=== PATIENT | male | born 1960 | race Caucasian/White ===

== ENCOUNTER → 2020-05-08 | Outpatient (CLI) | payer BC ==
--- NOTE | 2020-05-09 12:59 | XR ---
Left hip HISTORY: Pain in left hip 2 views of left hip Some mild prominence noted along the femoral neck superiorly. Alignment, bone mineralization and join t space maintained. No fracture or dislocation. IMPRESSION: Correlate for possible femoral acetabular impingement.
== END | disposition home or self-care (01) ==
LOC: RADXRMAIN 17:20
PROVIDERS: ATTEND Nurse Practitioner Family
DX: M25.552 Pain in left hip (principal)
CPT/HCPCS: 73502

== ENCOUNTER → 2020-10-23 | Outpatient (CLI) | payer BC ==
--- NOTE | 2020-10-23 09:52 | MR ---
MR left hip HISTORY: Left hip pain Multiplanar multisequence imaging obtained through the pelvis with small [id number] images through the left hip Exam correlated plain film 05/08/2020 There is a small amount of fluid signal present within the soft tissues adjacent to the gluteus tendo n insertions, gluteus tendons show some increased signal at the level of their insertion on the proxi mal left femur. No sizable left hip effusion. No definite labral tear. Geodes suspected in the acetab ular roof, articular cartilage signal is relatively maintained, some mild chondromalacia is suspected . There is no fracture or dislocation. Bone marrow signal is essentially maintained. No significant f ree fluid within the pelvis. No adenopathy. IMPRESSION: Findings consistent with partial tear or strain gluteus medius tendon, gluteus minimus te ndon. Mild osteoarthritis.
--- NOTE | 2020-10-23 12:02 | MR ---
EXAMINATION TYPE: MR lumbar spine wo con DATE OF EXAM: 10/23/2020 COMPARISON: NONE HISTORY: Low Back pain, Left hip pain TECHNIQUE: Multiplanar, multisequence imaging of the lumbar spine is performed without IV contrast. FINDINGS: Sagittal images of the lumbar spine show vertebral body heights and alignment to appear sat isfactory. Multilevel disc desiccation. There is mild to moderate multilevel disc space narrowing wit h relative sparing of L2-L3 level. The conus medullaris is normal in position and signal ending mid L 1 level. Small hemangioma involving the L3 vertebra sagittal image 7. Scattered Modic type II endplat e changes lower lumbar spine. Axial images at T12-L1 level show broad-based left paracentral disc protrusion mildly effacing the a nterior thecal sac. Axial images at L1-L2 level show larger left disc extrusion extending 10 mm below superior L2 endplat e sagittal image 6 of effacing ventral thecal sac along with lateral recess, disc herniation extends 15 mm transversely, there is compression of the left L1 nerve and likely central left L2 nerve sagitt al image 7. Axial images at L2-L3 level appear within normal limits. Axial images at L3-L4 levels show mild facet arthropathy bilaterally. There is mild broad-based poste rior disc protrusion mildly effacing the anterior thecal sac. There is mild to moderate left sided ne ural foraminal narrowing anterior inferior aspect the right-sided neural foramina is patent. Axial images at L4-L5 level show mild/moderate facet arthropathy bilaterally. There is focal central disc protrusion mildly effaces the anterior thecal sac. There is moderate right and mild left-sided n eural foraminal narrowing. Axial images at L5-S1 level show tiny central disc protrusion and mild facet arthropathy bilaterally. Mild effacement anterior thecal sac. Patent bilateral neural foramina. Paraspinal muscle bulk is maintained. There is 2.8 cm thin-walled cyst right kidney midpole level axi al image 27. IMPRESSION: Multilevel degenerative changes as detailed above. Largest disc herniation noted left L1- L2 level likely accounting for patient's left-sided radiculopathy type symptoms.
== END | disposition home or self-care (01) ==
LOC: EDSTATUS 10-10 07:45 → RADMRIMAIN 07:11 → OR 07:11 → EDSTATUS 07:45
PROVIDERS: ATTEND Family Medicine
DX: M51.26 Other intervertebral disc displacement, lumbar region (principal); M47.816 Spondylosis without myelopathy or radiculopathy, lumbar region; M16.12 Unilateral primary osteoarthritis, left hip
CPT/HCPCS: 72148

== ENCOUNTER → 2020-11-28 | Outpatient (CLI) | payer BC ==
--- NOTE | 2020-11-28 15:56 | XR ---
EXAMINATION TYPE: XR chest 2V DATE OF EXAM: 11/28/2020 COMPARISON: NONE HISTORY: Preoperative TECHNIQUE: Frontal and lateral views of the chest are obtained. FINDINGS: There is no focal air space opacity, pleural effusion, or pneumothorax seen. The cardiac silhouette size is within normal limits. The osseous structures are intact. IMPRESSION: No acute cardiopulmonary process.
[2020-11-28 15:57] LABS: Basophils % (A) 0 %; Eosinophils # (A) 0.1 k/uL (0-0.7); Eosinophils % (A) 1 %; HCT 48.7 % (39.0-53.0); HGB 16.9 gm/dL (13.0-17.5); Lymphocytes # (A) 1.2 k/uL (1.0-4.8); Lymphocytes % (A) 17 %; MCH 32.1 pg (25.0-35.0); MCHC 34.6 g/dL (31.0-37.0); MCV 92.7 fL (80.0-100.0); Mean Platelet Volume 7.5; Monocytes # (A) 0.5 k/uL (0-1.0); Monocytes % (A) 6 %; Neutrophils # (A) 5.5 k/uL (1.3-7.7); Neutrophils % (A) 73 %; Platelet Count 214 k/uL (150-450); RBC 5.25 m/uL (4.30-5.90); RDW 12.6 % (11.5-15.5); WBC 7.5 k/uL (3.8-10.6)
[2020-11-28 16:05] LABS: INR 0.9 (<1.2); Prothrombin Time 10.1 sec (9.0-12.0)
[2020-11-28 16:20] LABS: ALT 23 U/L (4-49); AST 26 U/L (17-59); African American GFR (CKD) >90 (>60 ml/min/1.73 sqM); Albumin 4.3 g/dL (3.5-5.0); Albumin/Globulin Ratio 1.7; Alkaline Phosphatase 83 U/L (38-126); Anion Gap 8 mmol/L; Blood Urea Nitrogen 22 mg/dL (9-20); Calcium 9.5 mg/dL (8.4-10.2); Carbon Dioxide 28 mmol/L (22-30); Chloride 103 mmol/L (98-107); Globulin 2.5 g/dL; Glucose 94 mg/dL (74-99); Non-African American GFR(CKD) >90 (>60 ml/min/1.73 sqM); Potassium 4.2 mmol/L (3.5-5.1); Sodium 139 mmol/L (137-145); Total Bilirubin 0.3 mg/dL (0.2-1.3); Total Protein 6.8 g/dL (6.3-8.2)
== END | disposition home or self-care (01) ==
LOC: LABWHC1 15:23
PROVIDERS: ATTEND Nurse Practitioner
DX: Z01.812 Encounter for preprocedural laboratory examination (principal); N40.1 Benign prostatic hyperplasia with lower urinary tract symptoms
CPT/HCPCS: 36415; 71046; 80053; 85025; 85610

== ENCOUNTER 2021-05-28 07:44 | Day surgery (SDC) | payer BC ==
[2021-05-24 12:03] VITALS: BMI 25.1
[~2021-05-28 07:44] MED LIST: LACTATED RINGERS 1,000 ML IV SCH
--- NOTE | 2021-05-28 07:50 | P.GSHP ---
History of Present Illness H&P Date: 05/28/21 CHIEF COMPLAINT: Colon screen HISTORY OF PRESENT ILLNESS: The patient is a 61-year-old male who presents for colon screen. Lower endoscopy was offered for further evaluation and management. PAST MEDICAL HISTORY: Please see list. PAST SURGICAL HISTORY: Please see list. MEDICATIONS: Please see list. ALLERGIES: Please see list. SOCIAL HISTORY: No illicit drug use FAMILY HISTORY: No reports of Crohn disease or ulcerative colitis. REVIEW OF ORGAN SYSTEMS: CONSTITUTIONAL: No reports of fevers or chills. PHYSICAL EXAM: VITAL SIGNS: Stable GENERAL: Well-developed pleasant in no acute distress. HEENT: No scleral icterus. Extraocular movements grossly intact. Moist buccal mucosa. NECK: Supple without lymphadenopathy. CHEST: Unlabored respirations. Equal bilateral excursions. CARDIOVASCULAR: Regular rate and rhythm. Distal 2+ pulses. ABDOMEN: Soft, nontender, nondistended. MUSCULOSKELETAL: No clubbing, cyanosis, or edema. ASSESSMENT: 1. Colon screen. PLAN: 1. Recommend proceeding with a lower endoscopy Past Medical History Past Medical History: Cancer, GERD/Reflux, Prostate Disorder Additional Past Medical History / Comment(s): Hx kidney stones. 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 Sl BPH. History of Any Multi-Drug Resistant Organisms: None Reported Past Surgical History: Tonsillectomy Additional Past Surgical History / Comment(s): Colonoscopy. Cystoscopy. Past Anesthesia/Blood Transfusion Reactions: Motion Sickness Smoking Status: Never smoker - Past Family History Mother Family Medical History: No Reported History Medications and Allergies Home Medications Medication Instructions Recorded Confirmed Type Acetaminophen [Tylenol Extra 500 - 1,000 mg PO DIRECTED PRN 05/24/21 05/24/21 History Strength] Alfuzosin HCl [Uroxatral] 10 mg PO DAILY 05/24/21 05/24/21 History Calcium Carbonate [Tums] 500 - 1,000 mg PO QID PRN 05/24/21 05/24/21 History Fexofenadine/Pseudoephedrine 1 each PO BID PRN 05/24/21 05/24/21 History [Shannan-D 12 Hour Tablet] Glucosamine (Unknown Dose) 1 tab PO DAILY 05/24/21 History Multivitamins, Thera [Multivitamin 1 tab PO DAILY 05/24/21 05/24/21 History (formulary)] Vitamin D3 (Unknown Dose) 1 tab PO DAILY 05/24/21 History Allergies Allergy/AdvReac Type Severity Reaction Status Date / Time No Known Allergies Allergy Verified 05/24/21 11:43
[2021-05-28 08:18] VITALS: RESP 16; TEMP 97.8
[2021-05-28] MEDS ORDERED: LIDOCAINE 1% (10MG/ML) FOR IV START INTRADERMA ONE (08:23)
[2021-05-28] MEDS ORDERED: PROPOFOL 10 MG/ML 20 ML VIAL IV ONE (09:16)
--- NOTE | 2021-05-28 09:41 | P.PCN ---
Date of Procedure: 05/28/21 Description of Procedure: PREOPERATIVE DIAGNOSIS: Colonoscopy screening POSTOPERATIVE DIAGNOSIS: Tubular adenoma transverse colon Sigmoid diverticulosis Internal hemorrhoids, grade 2 OPERATION: Colonoscopy to the ileocecal valve and appendiceal orifice, cecum Colonoscopy with hot snare polypectomy SURGEON: Aga Mcconnell MD. ANESTHESIA: MAC. INDICATIONS: The patient is an 61-year-old male who presents family history of malignant colon polyps and personal history of colon polyps. Last colonoscopy 5 years. Benefits and risks were described and informed consent was obtained. DESCRIPTION OF PROCEDURE: The patient had undergone Sutab prep. The patient had been brought into the operating room and laid in the left lateral decubitus position. After adequate intravenous sedation, the rectum was examined with 2% lidocaine jelly. The prostate was unremarkable. External hemorrhoids were encountered. The rectal tone was within normal limits. No lesions were palpated in the rectal vault. An Olympus colonoscope was advanced until the cecum, ileocecal valve and appendiceal orifice were clearly viewed. The prep was good Sigmoid diverticulosis was encountered. Colonic polyps were found and removed. No focal colitis was found. Retroflexion of the scope demonstrated grade 2 internal hemorrhoids without active bleeding or inflammation. The colon was desufflated. The patient had tolerated the procedure well. Withdrawal time was over 6 minutes. FINDINGS: Aronchick preparation quality scale 2 (1-5) Internal hemorrhoids, grade 2 External hemorrhoids, grade 2. No arteriovenous malformations. Sigmoid diverticulosis Removal of 1 polyp: - Snare polypectomy transverse colon, 5 mm tubulovillous adenoma polyp. No focal colitis. RECOMMENDATIONS: Repeat colonoscopy 5 years, 2025 Plan - Discharge Summary Discharge Rx Participant: No New Discharge Prescriptions: Continue Fexofenadine/Pseudoephedrine [Shannan-D 12 Hour Tablet] 1 each PO BID PRN PRN Reason: allergies/sinus sx Vitamin D3 (Unknown Dose) 1 tab PO DAILY Acetaminophen [Tylenol Extra Strength] 500 - 1,000 mg PO DIRECTED PRN PRN Reason: Pain Multivitamins, Thera [Multivitamin (formulary)] 1 tab PO DAILY Alfuzosin HCl [Uroxatral] 10 mg PO DAILY Glucosamine (Unknown Dose) 1 tab PO DAILY Calcium Carbonate [Tums] 500 - 1,000 mg PO QID PRN PRN Reason: GERD Discharge Medication List Acetaminophen [Tylenol Extra Strength] 500 - 1,000 mg PO DIRECTED PRN 05/24/21 [History] Alfuzosin HCl [Uroxatral] 10 mg PO DAILY 05/24/21 [History] Calcium Carbonate [Tums] 500 - 1,000 mg PO QID PRN 05/24/21 [History] Fexofenadine/Pseudoephedrine [Shannan-D 12 Hour Tablet] 1 each PO BID PRN 05/24/21 [History] Glucosamine (Unknown Dose) 1 tab PO DAILY 05/24/21 [History] Multivitamins, Thera [Multivitamin (formulary)] 1 tab PO DAILY 05/24/21 [History] Vitamin D3 (Unknown Dose) 1 tab PO DAILY 05/24/21 [History] Follow up Appointment(s)/Referral(s): Aga Mcconnell MD [STAFF PHYSICIAN] - As Needed Patient Instructions/Handouts: Diverticulosis Diet (GEN), Diverticulosis (DC), Colorectal Polyps (GEN) Activity/Diet/Wound Care/Special Instructions: Repeat colonoscopy 5 years, 2025 Discharge Disposition: HOME SELF-CARE
[2021-05-28 09:53] VITALS: BP 123/85; PULSE 63
== END 2021-05-28 10:33 | disposition home or self-care (01) ==
LOC: ORWHC2ENDO 07:44
PROVIDERS: ATTEND Surgery Plastic and Reconstructive Surgery
DX: Z12.11 Encounter for screening for malignant neoplasm of colon (principal); D12.3 Benign neoplasm of transverse colon; K57.30 Diverticulosis of large intestine without perforation or abscess without bleeding; K64.8 Other hemorrhoids
CPT/HCPCS: 45385; J2704; 88305